=== PATIENT | female | born 1950 | race Caucasian/White ===

== ENCOUNTER → 2016-08-02 | Outpatient (CLI) | payer MEDICARE ==
--- NOTE | 2016-08-05 10:47 | RADIOLOGY REPORT PS360 ---
DIG MAMM-SCREEN MICHELLE W/CAD CAD Screening ORDERING PHYSICIAN : Tristan Faye MD PATIENT AGE: 66 years GENDER: Female COMPARISON:.: Previous mammogram study from March 2014, July 2015, 2012 & INDICATION: Routine screening 66-year-old. No hormones no new complaints. Family history. Paternal aunt with breast cancer TECHNIQUE: Standard CC and MLO images were obtained. R2 CAD reviewed. FINDINGS: Minimal fibroglandular elements bilaterally. Mild asymmetry of the breast. Overall Lower breast bilaterally with no prominent new findings. No dominant mass nor suspicious calcifications. Mild asymmetry is again noted with slightly more evident glandular features at left breast. RIGHT BREAST: No interval change follow-up in one year adequate. LEFT BREAST:. The minimal fibroglandular elements towards the lateral left breast on cc view unchanged. Follow-up in one year adequate IMPRESSION: Stable bilateral mammogram with no significant new findings.. Follow up one year BI-RADS CATEGORY: 1_Negative RECOMMENDED FOLLOWUP: 12M 12 MONTH FOLLOW-UP (A letter has been sent to the patient regarding results of the study.)
== END ==
LOC: RAD 08:08
DX: Z12.31 Encounter for screening mammogram for malignant neoplasm of breast (principal); E04.1 Nontoxic single thyroid nodule
CPT/HCPCS: G0202

== ENCOUNTER → 2017-01-17 | Outpatient (CLI) | payer MEDICARE ==
[2017-01-17 09:07] LABS: HEMOGLOBIN 13.4 g/dL (12.2-16.2); LYMPH % 27.5 % (10-50.0)
[2017-01-17 11:15] LABS: BUN 9 mg/dL (7-18)
[2017-01-17 11:29] LABS: GFR (ESTIMATED) 72 ML/MIN (59-)
[2017-01-19 06:40] LABS: Vitamin D, 25-Hydroxy 34.3 ng/mL (30.0-100.0)
== END ==
LOC: LAB 08:39
PROVIDERS: Nurse Practitioner Family
DX: L40.59 Other psoriatic arthropathy (principal); E78.5 Hyperlipidemia, unspecified; E04.1 Nontoxic single thyroid nodule; E55.9 Vitamin D deficiency, unspecified; E53.8 Deficiency of other specified B group vitamins